=== PATIENT | male | born 1985 | race Caucasian/White ===

== ENCOUNTER 2025-04-22 08:31 | Emergency (ER) | payer OTHER, SELFPAY ==
[2025-04-22 08:46] VITALS: BP 141/83; PULSE 82; RESP 18; TEMP 36.9; O2SAT 97; BMI 28.2
--- NOTE | 2025-04-22 09:20 | ED.URI ---
HPI - URI/Sore Throat General Chief Complaint: Fever Stated Complaint: fever for 48 hours Time Seen by Provider: 04/22/25 09:12 Source: patient Mode of arrival: Ambulatory History of Present Illness HPI Narrative: Patient is a 39-year-old healthy male presenting today with 2 days of headache sore throat and fever. He reports he is taking Tylenol Motrin but has a headache is so bad he can not sleep. Not really drinking fluids. Pujaon is here sick with the same. No significant shortness of breath. Fever 101 at home minimal neck pain. Mom works at daycare were multiple children have had vomiting and diarrhea Related Data Previous Rx's ?Medication ?Instructions ?Recorded hydrocodone 5 mg-acetaminophen 325 1 tab PO Q6H PRN pain #10 tabs 04/22/25 mg tablet ondansetron 4 mg disintegrating 4 mg PO Q6-8H PRN nausea and 04/22/25 tablet vomiting #10 tabs Allergies Allergy/AdvReac Type Severity Reaction Status Date / Time No Known Drug Allergies Allergy Verified 04/22/25 08:46 Patient History Social History Smoking Status: Former smoker Smoking Status: Former smoker Exam Initial Vital Signs Initial Vital Signs: Vital Signs Temperature 98.5 F 04/22/25 08:46 Pulse Rate 82 04/22/25 08:46 Respiratory Rate 18 04/22/25 08:46 Blood Pressure 141/83 H 04/22/25 08:46 Pulse Oximetry 97 04/22/25 08:46 Oxygen Delivery Method Room Air 04/22/25 08:46 GENERAL: Alert 39-year-old male appears to feel unwell and in no acute distress. HEENT: Head atraumatic,EOMI, pupils reactive, face symmetric, moist mucous membranes NECK: No meningeal signs CARDIOVASCULAR: Regular rate and rhythm without murmurs, rubs or gallops. RESPIRATORY: Breath sounds equal bilaterally, no wheezes rales or rhonchi. ABDOMEN: Soft, nontender. Normoactive bowel sounds all 4 quadrants. No guarding or rebound. EXTREMITIES: Normal range of motion, no clubbing or edema. Neurovascularly intact NEUROLOGICAL: Alert and oriented x4.Normal gait and speech. SKIN: Warm, dry, no laceration, no petechiae, no rashes or lesions. Course Orders Ordered: ED Orders 04/22/25 09:03 Covid-19 + FLU A/B + RSV - PCR Stat Discontinued Medications Hydrocodone Bitart/Acetaminophen (Hydrocodone/Acet 5/325 Tablet) 1 tab PO NOW ONE Stop: 04/22/25 10:49 Last Admin: 04/22/25 10:58 Dose: 1 tab Documented By: YAHAIRA Ketorolac Tromethamine (Ketorolac 30 Mg/Ml Vial) 30 mg IM NOW ONE Stop: 04/22/25 09:21 Last Admin: 04/22/25 09:38 Dose: 30 mg Documented By: Ondansetron HCl (Ondansetron 4 Mg Odt) 4 mg SL NOW ONE Stop: 04/22/25 09:41 Last Admin: 04/22/25 09:51 Dose: 4 mg Documented By: Vital Signs Vital signs: Vital Signs - 8 hr 04/22/25 08:46 04/22/25 10:54 Temperature 98.5 F Pulse Rate 82 70 Respiratory Rate 18 16 Blood Pressure 141/83 H 137/76 Pulse Oximetry 97 98 Oxygen Delivery Method Room Air Room Air MDM - URI/Sore Throat Lab Data Labs: Lab Results 04/22/25 Range/Units 09:03 SARS-CoV-2 (PCR) Negative (Negative) Influenza A (RT-PCR) Flu a negative (NEGATIVE) Influenza B (RT-PCR) Flu b negative (NEGATIVE) RSV (PCR) Negative (Negative) MDM Narrative Medical decision making narrative: Patient is a 39-year-old male here with a headache and neck pain. Suspect viral illness although viral panel was negative. He has only had symptoms for 2 days. Given Toradol Zofran and Linville here in the ED has had minimal improvement. He is tolerating p.o. fluids. Discussed further workup would include a lumbar puncture at this time declined but agreed to come back if symptoms continued or worsened. Patient's vitals have been stable here and he is afebrile. He reports he is unable to sleep at night requesting something stronger for pain. We will give him Linville here along with a small prescription at Differential diagnosis meningitis encephalitis viral illness, intracranial hemorrhage Discharge Plan Departure Patient Disposition: Home Clinical Impression: Acute upper respiratory infection, Headache Instructions: DI for Viral Upper Respiratory Infection -- Adult Activity Restrictions/Additional Instructions: *You have been diagnosed with headache *What to do: I suspect that this is a viral illness. Recommend sleeping and staying hydrated with a electrolyte fluid. *Continue to take medications as directed Motrin 800 mg every 8 hours for [id number] pain or fever Tylenol 1000 mg every 8 hours for [id number] pain or fever Linville 1-2 tablets every 6 hours for severe pain do not combine with Tylenol, do not take more than 4000 mg of Tylenol in 24 hours *Follow up with your primary care provider in 2-3 days or call [phone] *Return to ER if you should have increasing headache persistent vomiting fever or any new, worsening or concerning symptoms CONTROLLED SUBSTANCE DISCHARGE (Narcotoic/benzodiazepine/Flexeril/Phenergan) 1. You have been prescribed narcotic medications, it does have acetaminophen/Tylenol/paracetamol in it, DO NOT TAKE MORE THAN 4,00mg in 24 hours of Tylenol. TRAMADOL DOES NOT CONTAIN TYLENOL 2. Please understand that we cannot provide further refills of narcotics, benzodiazepines or controlled substances through the ED and her pain management will need to be through your provider. 3. While on these medications you cannot drive or operate heavy machinery. 4. You cannot sign legal documents or perform any duties such as this. 5. As long as you're taking opiate pain medications he should also be taking a stool softener such as Colace, Dulcolax, MiraLAX or prune juice, to help avoid constipation. Prescriptions: New hydrocodone-acetaminophen 5-325 mg tablet 1 tab PO Q6H PRN (Reason: pain) Qty: 10 0RF ondansetron 4 mg tablet,disintegrating 4 mg PO Q6-8H PRN (Reason: nausea and vomiting) Qty: 10 0RF Stand Alone Forms: Patient Portal/API
[2025-04-22] MEDS: KETOROLAC 30 MG/ML VIAL IM (09:38)
[2025-04-22] MEDS: ONDANSETRON 4 MG ODT SL (09:51)
[2025-04-22 10:19] LABS: Influenza A - CEPHEID Flu A NEGATIVE (NEGATIVE); Influenza B - CEPHEID Flu B NEGATIVE (NEGATIVE)
[2025-04-22 10:35] LABS: COVID-19 CEPHEID 4-PLEX PCR Negative (Negative)
[2025-04-22 10:54] VITALS: BP 137/76; PULSE 70; RESP 16; O2SAT 98
== END 2025-04-22 11:06 | disposition home or self-care (01) ==
PROVIDERS: Emergency Provider Emergency Medicine
DX: J06.9 Acute upper respiratory infection, unspecified (principal); R51.9 Headache, unspecified; J02.9 Acute pharyngitis, unspecified
CPT/HCPCS: 87637; 96372; 99283; J1885

== ENCOUNTER → 2025-07-04 13:08 | Outpatient (CLI) | payer OTHER, SELFPAY ==
--- NOTE | 2025-07-04 13:11 | DI.RAD.S_ITS ---
PROCEDURE: XR CHEST 2V INDICATIONS: SINUSITIS TECHNIQUE: 2 views of the chest were acquired. COMPARISON: None. FINDINGS: Surgical changes and devices: None. Lungs and pleura: Lungs are clear. No pleural effusions or pneumothorax. Mediastinum: Mediastinal contours are normal. Heart size is normal. Bones and chest wall: No suspicious bony abnormalities. Soft tissues appear unremarkable. IMPRESSION: No acute pulmonary process. Dictated by: Carol Olson M.D. on 07/04/2025 at 16:45 Approved by: Carol Olson M.D. on 07/04/2025 at 16:45
== END ==
LOC: RESP 13:10
PROVIDERS: Referring Provider Chiropractor; Visit Provider Chiropractor
DX: J01.90 Acute sinusitis, unspecified (principal); Z87.891 Personal history of nicotine dependence
CPT/HCPCS: 71046; 94060